=== PATIENT | male | born 1970 | race Caucasian/White ===

== ENCOUNTER 2017-01-21 22:59 | Emergency (ER) | payer BC ==
[2017-01-21] MEDS ORDERED: 0.9 % SODIUM CHLORIDE 1,000 ML BAG IV ONE (23:36)
[2017-01-21] MEDS ORDERED: MORPHINE SULFATE 5 MG/ML PFS IVP ONE (23:36)
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
[2017-01-21] MEDS ORDERED: Diph,Pert(Acell),Tet Vac 0.5 ML SYR IM ONE (23:43)
[2017-01-21 23:55] LABS: BASO % 0.1 % (0-6); EOS % 0.3 % (0-6); HEMATOCRIT 45.2 % (42.0-52.0); HEMOGLOBIN 15.8 gm/dl (14.0-18.0); LYMPH % 6.8 % (16-45); MEAN CORPUSCULAR HEMOGLOBIN 31.5 pg (27-33); MEAN PLATELET VOLUME 10.3 fl (7.4-10.4); MONO % 6.3 % (0-9); PLATELET COUNT 220 K/uL (130-400); RED BLOOD COUNT 5.02 M/uL (4.40-5.70); RED CELL DISTRIBUTION WIDTH 13.3 % (11.5-14.5); WHITE BLOOD COUNT W/O DIFF 10.8 K/uL (4.2-12.2)
[2017-01-22 00:06] LABS: ANION GAP 9.8 (7-16); BLOOD UREA NITROGEN 9 mg/dL (9-20); CARBON DIOXIDE 27.2 mmol/L (22-30); CREATININE 0.9 mg/dL (0.66-1.25); EST GLOMERULAR FILTRATION RATE > 60 ml/min; GLUCOSE,RANDOM 154 mg/dL (70-110)
[2017-01-22 00:41] LABS: INR 1.06; PARTIAL THROMBOPLASTIN TIME 25.4 SECONDS (24.5-39.1); PROTHROMBIN TIME (PATIENT) 11.5 SECONDS (9.5-12.1)
[2017-01-22] MEDS ORDERED: KETOROLAC 30 MG/ML VIAL IVP ONE (02:04)
[2017-01-22] MEDS ORDERED: HYDROCODONE/APAP 7.5/325MG TABLET PO ONE (02:04)
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
== END 2017-01-22 03:16 | disposition home or self-care (01) ==
LOC: ER 22:59
DX: S51.012A Laceration without foreign body of left elbow, initial encounter (principal); S30.1XXA Contusion of abdominal wall, initial encounter; S70.12XA Contusion of left thigh, initial encounter; S80.02XA Contusion of left knee, initial encounter; W22.8XXA Striking against or struck by other objects, initial encounter; Y92.838 Other recreation area as the place of occurrence of the external cause
CPT/HCPCS: 12001 ×2; 99284 ×2; 96374; 96372; 96375; 85730; 85610; 80048; 85027; 73552; 73562; 74177; Q9967; J1885; J2270; 90715; J7030